=== PATIENT | female | born 1935 | race African-American/Black ===

== ENCOUNTER 2018-10-09 13:05 | Emergency (ER) | payer MEDICARE, MEDICAID ==
[~2018-10-09] VITALS: Ht 165.1 cm; Wt 60.0 kg
[~2018-10-09 13:05] MED LIST: AMLO5TAB88 PO; ASA5EC PO; ATOR10TA PO; CLON0.1T PO; DIAZ1KIT7; FERR-63 PO; LEVO500T2 PO
[2018-10-09 13:07] VITALS: BP 140/90
== END 2018-10-09 16:45 | disposition left against medical advice (07) ==
LOC: ER 13:05
DX: M79.606 Pain in leg, unspecified (principal); Z53.21 Procedure and treatment not carried out due to patient leaving prior to being seen by health care provider